=== PATIENT | female | born 1995 | race African-American/Black ===

== ENCOUNTER 2019-02-03 01:40 | Emergency (ER) | payer SELFPAY ==
[~2019-02-03] VITALS: Ht 157.5 cm; Wt 53.9 kg
[2019-02-03] MEDS ORDERED: HYDROCODONE/ACETAMINOPHEN 5/325MG TABLET PO ONE (03:45)
[2019-02-03 06:19] VITALS: BP 132/84
== END 2019-02-03 06:21 | disposition home or self-care (01) ==
LOC: ER 01:40 → EDBD 01:40 → ER 06:21
DX: S46.911A Strain of unspecified muscle, fascia and tendon at shoulder and upper arm level, right arm, initial encounter (principal); S66.911A Strain of unspecified muscle, fascia and tendon at wrist and hand level, right hand, initial encounter; F17.200 Nicotine dependence, unspecified, uncomplicated; Z98.890 Other specified postprocedural states; Y08.89XA Assault by other specified means, initial encounter; Y93.89 Activity, other specified; Y92.89 Other specified places as the place of occurrence of the external cause; Y99.8 Other external cause status
CPT/HCPCS: 73030; 73060; 73090; 73100; 81025; 99283; 99406